=== PATIENT | male | born 1985 | race African-American/Black ===

== ENCOUNTER 2023-06-20 21:24 | Emergency (ER) | payer SELFPAY ==
[~2023-06-20] VITALS: Ht 188 cm; Wt 88.0 kg
[2023-06-20 22:02] VITALS: BP 135/85; O2SAT 98
[2023-06-21] MEDS ORDERED: METH-653 MT (06:29)
[2023-06-21] MEDS ORDERED: IBUP-2029 MT (06:29)
[2023-06-21 06:38] VITALS: PULSE 68; RESP 16; TEMP 98.3
== END 2023-06-21 06:39 | disposition home or self-care (01) ==
LOC: ER 21:24
DX: S00.03XA Contusion of scalp, initial encounter (principal); V98.8XXA Other specified transport accidents, initial encounter; Y93.89 Activity, other specified; Y92.89 Other specified places as the place of occurrence of the external cause; Y99.8 Other external cause status
CPT/HCPCS: 99284

== ENCOUNTER 2024-05-31 17:01 | Emergency (ER) | payer OTHER ==
[~2024-05-31] VITALS: Ht 188 cm; Wt 91.0 kg
[~2024-05-31 17:01] MED LIST: IBUP-2029 MT; METH-653 MT
[2024-05-31 17:30] VITALS: BP 136/92; PULSE 98; RESP 18; TEMP 97.9; O2SAT 97
[2024-05-31] MEDS ORDERED: AMOX1TAB16 MT (18:01)
[2024-05-31] MEDS: TETANUS, DIPHTHERIA, PERTUSSIS VAC/PF 0.5ML (>10YR OLD) IM ONE (18:39)
== END 2024-05-31 18:42 | disposition home or self-care (01) ==
LOC: ER 17:01
DX: S10.91XA Abrasion of unspecified part of neck, initial encounter (principal); S41.152A Open bite of left upper arm, initial encounter; S11.95XA Open bite of unspecified part of neck, initial encounter; W50.3XXA Accidental bite by another person, initial encounter; Y93.89 Activity, other specified; Y92.89 Other specified places as the place of occurrence of the external cause; Y99.8 Other external cause status
CPT/HCPCS: 90715; 90471; 99283; Z7610